=== PATIENT | male | born 1995 | race Caucasian/White ===

== ENCOUNTER → 2019-08-31 | Outpatient (CLI) | LOC: LABNPT 08:45 | PROVIDERS: ATTEND Nurse Practitioner Family | DX: R30.0 Dysuria (principal); Z72.51 High risk heterosexual behavior | CPT/HCPCS: 87491; 87591 ==

== ENCOUNTER 2022-11-02 16:42 | Emergency (ER) | payer OTHER ==
[~2022-11-02] VITALS: Ht 190.5 cm; Wt 88.4 kg
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
[2022-11-02] MEDS ORDERED: IBUPROFEN 600 MG (MOTRIN) TAB PO ONE (17:15)
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
[2022-11-02 18:00] VITALS: BP 124/78
== END 2022-11-02 18:02 | disposition home or self-care (01) ==
LOC: EDUNIT# 16:42 → ER 16:43
DX: S16.1XXA Strain of muscle, fascia and tendon at neck level, initial encounter (principal); S50.12XA Contusion of left forearm, initial encounter; S80.02XA Contusion of left knee, initial encounter; S80.01XA Contusion of right knee, initial encounter; Z28.310 Unvaccinated for COVID-19; V59.9XXA Occupant (driver) (passenger) of pick-up truck or van injured in unspecified traffic accident, initial encounter; Y92.410 Unspecified street and highway as the place of occurrence of the external cause
CPT/HCPCS: 70450; 72125